=== PATIENT | female | born 1950 | race Two or more races ===

== ENCOUNTER 2016-11-03 10:36 | Emergency (ER) | payer MEDICAID ==
[~2016-11-03] VITALS: Ht 152.4 cm; Wt 73.5 kg
--- NOTE | 2016-11-03 12:40 | Emergency Room Report ---
History of Present Illness General Chief Complaint: Lower Extremity Injury Source: Patient Present Illness HPI She states that she stubbed her toe on her left foot several weeks ago. She states that she had been doing well until the past few days and she noticed pain in her ankle and on the top of her foot. He states it is worse with movement. She denies any new trauma. She denies fever chills. She denies nausea or vomiting. She has no other complaints. Allergies: Coded Allergies: CEFACLOR (Verified Allergy, Unknown, 11/03/16) Patient History Past Medical History: see triage record, HTN, other - HLP Social History: Denies: alcohol use, drug use, smoking Reviewed Nursing Documentation: PMH: Agreed, PSxH: Agreed Nursing Documentation-PMH Past Medical History: No History, Except For Hx Hypertension: Yes Review of Systems All Other Systems: negative except mentioned in HPI Physical Exam Vital Signs Date Time Temp Pulse Resp B/P Pulse Ox O2 Delivery O2 Flow Rate FiO2 11/03/16 10:43 98.1 64 18 140/64 96 Room Air Sp02 EP Interpretation: reviewed, normal General Appearance: no apparent distress, alert, GCS 15, non-toxic Head: normocephalic, atraumatic Eyes: bilateral eye PERRL, bilateral eye normal inspection ENT: hearing grossly normal, normal pharynx, no angioedema, normal voice Neck: normal inspection Respiratory: no respiratory distress, no retraction, no accessory muscle use, speaking full sentences Rectal: deferred Musculoskeletal: back normal, gait/station normal, normal range of motion, non- tender, swelling - Mild swelling L. ankle. +pain w/ rom. No erythema or warmth. Neurologic: alert, oriented x3, responsive, motor strength/tone normal, sensory intact, speech normal Psychiatric: judgement/insight normal, memory normal, mood/affect normal, no suicidal/homicidal ideation Skin: normal color, no rash, warm/dry, well hydrated Procedures Splinting Splinting : Consent: Verbal Location: L. ankle Pre-Made Type: aircast Pre-Proc Neuro Vasc Exam: normal Post-Proc Neuro Vasc Exam: normal Patient Tolerated: Well Complications: None Medical Decision Making Diagnostic Impression: Primary Impression: Ankle joint pain Additional Impressions: Foot pain Arthritis ER Course This patient has a clinical presentation consistent with ankle pain and there is some mild swelling on exam. This is likely arthritis. X-ray of the foot showed no acute findings. The patient was given an Aircast for comfort. I also gave anti-inflammatories. No emergency medical condition is identified at this time. I warned the patient that plain x-rays have a significant false-negative rate. Factors, significant soft tissue injuries, and other pathology may be present even though not seen on x-ray. Injuries serious enough to ultimately require surgery may be present with normal x-rays. This can occur because some fractures or not initially visible on plain film x-rays or, rarely, the radiologist may discover a subtle fracture that I missed on my preliminary read. It was explained that close outpatient followup is required to evaluate this possibility. If all symptoms resolve or improve significantly in the coming weeks, no further testing is needed. However, if the pain/symptoms persist, additional studies such as MRI/CT or repeat x-ray would be needed to rule out the possibility of serious soft tissue injury. The patient agreed to followup as directed. Other X-Ray Diagnostic Results X-Ray ordered: L. foot # of Views/Limited Vs Complete: Complete EP Interpretation: Yes Interpretation: no fractures, no dislocation, no soft tissue swelling Indication: Pain Impression: No acute disease Interpreting ER Provider: Srini Last Vital Signs Date Time Temp Pulse Resp B/P Pulse Ox O2 Delivery O2 Flow Rate FiO2 11/03/16 10:43 98.1 64 18 140/64 96 Room Air Disposition: HOME, SELF-CARE Condition: Stable Referrals: NOT CHOSEN FREEMAN/,REFERRING (PCP) ASHLY PETERSEN D.O. Nov 03, 2016 12:40
[2016-11-03] MEDS ORDERED: IBUPROFEN600 MG ORAL (12:54)
[2016-11-03 13:45] VITALS: BP 132/106
--- NOTE | 2016-11-03 16:44 | Diagnostic Imaging Report ---
Indication: PAIN Technique: 3 views left foot Comparison: none Findings: No acute fractures. No dislocations. The joint spaces are preserved. Impression: Negative
== END 2016-11-03 13:45 | disposition home or self-care (01) ==
LOC: EMR 11:44
DX: M25.572 Pain in left ankle and joints of left foot (principal); M19.90 Unspecified osteoarthritis, unspecified site; Z88.8 Allergy status to other drugs, medicaments and biological substances; I10 Essential (primary) hypertension
CPT/HCPCS: 29540; 99283